=== PATIENT | female | born 1955 | race Hispanic/Latino ===

== ENCOUNTER 2017-07-24 09:08 | Inpatient (IN) | payer SELFPAY ==
[~2017-07-24] VITALS: Ht 165.1 cm; Wt 114.1 kg
[2017-07-24] MEDS ORDERED: ASPIRIN 81 MG CHEW TAB PO STA (09:23)
[2017-07-24 09:34] LABS: BASOPHILS % 0.2 % (0.0-1.0); EOSINOPHILS # (AUTO) 0.3 (0.0-0.4); EOSINOPHILS % 2.6 % (0.0-6.0); LYMPHOCYTES # (AUTO) 0.6 (1.0-3.2); MEAN CORPUSCULAR HEMOGLOBIN 28.9 pg (28-32); MEAN CORPUSCULAR HGB CONC 31.3 g/dL (31-35); MEAN CORPUSCULAR VOLUME 92.5 fL (81-99); MONOCYTES # (AUTO) 0.7 (0.2-0.8); MONOCYTES % 5.6 % (4.4-11.3); NEUTROPHILS # (AUTO) 10.5 (2.1-6.9); NEUTROPHILS % 86.4 % (38.7-80.0); PLATELET COUNT 311 x10e3/uL (140-360); RED BLOOD COUNT 5.19 x10e6/uL (3.6-5.1)
[2017-07-24 09:51] LABS: ALANINE AMINOTRANSFERASE 17 IU/L (0-55); ALBUMIN 3.2 g/dL (3.5-5.0); ALBUMIN/GLOBULIN RATIO 0.8 (0.8-2.0); ALKALINE PHOSPHATASE 74 IU/L (40-150); ANION GAP 12.4 mmol/L (8-16); BLOOD UREA NITROGEN 25 mg/dL (7-26); BUN/CREATININE RATIO 26 (6-25); CALCIUM 9.1 mg/dL (8.4-10.2); CARBON DIOXIDE 33 mmol/L (22-29); CHLORIDE 97 mmol/L (98-107); CREATINE KINASE 60 IU/L (29-168); CREATININE, SERUM 0.96 mg/dL (0.57-1.11); EST GLOMERULAR FILTRATION RATE 59 ML/MIN (60-); GLUCOSE 211 mg/dL (74-118); POTASSIUM 4.4 mmol/L (3.5-5.1); SODIUM 138 mmol/L (136-145)
[2017-07-24] MEDS ORDERED: ONDANSETRON HCL 4 MG ORAL DISINTEGRATING TAB PO ONE (10:15)
[2017-07-24] MEDS ORDERED: METHYLPREDNISOLONE SOD SUCC 125 MG/2ML VIAL IV ONE (10:30)
[2017-07-24] MEDS ORDERED: ALBUTEROL/IPRATROPIUM 3 ML NEB NEB ONE (10:30)
--- NOTE | 2017-07-24 10:31 | Diagnostic Imaging Report ---
PROCEDURE: CHEST SINGLE (PORTABLE) COMPARISON: None. INDICATIONS: SHORTNESS OF BREATH, CHEST PRESSURE FINDINGS: Suboptimal inspiratory effort with low lung volumes. Vascular crowding lung bases and perihilar regions. No focal airspace consolidation, large pleural effusion, or pneumothorax. Normal heart size for technique. Tortuosity and atherosclerotic calcification of the thoracic aorta. CONCLUSION: Low lung volumes with vascular crowding or pulmonary venous congestion in the perihilar regions. Dictated by: Kodi Pichardo M.D. on 07/24/2017 at 10:34 Electronically approved by: Kodi Pichardo M.D. on 07/24/2017 at 10:34
[2017-07-24] MEDS ORDERED: SODIUM CHLORIDE FLUSH 10 ML SYR INJ PRN (11:00)
[2017-07-24] MEDS ORDERED: NITROGLYCERIN 0.4 MG SUBL SL PRN (11:00)
[2017-07-24] MEDS ORDERED: ONDANSETRON HCL INJ 2 MG/ML VIAL IV PRN (11:00)
[2017-07-24] MEDS ORDERED: ASPIRIN 81 MG CHEW TAB PO ONE (11:00)
[2017-07-24] MEDS ORDERED: ONDANSETRON HCL 4 MG ORAL DISINTEGRATING TAB SL PRN (11:15)
[2017-07-24] MEDS ORDERED: LOSARTAN POTAS100 MG PO (12:00)
[2017-07-24] MEDS ORDERED: FENOFIBRATE145 MG PO (12:00)
[2017-07-24] MEDS ORDERED: BUPROPION HCL75 MG PO (12:00)
[2017-07-24] MEDS ORDERED: NIFEDIPINE ER30 M1 PO (12:00)
[2017-07-24] MEDS ORDERED: PANTOPRAZOLE SO40 MG PO (12:00)
[2017-07-24] MEDS ORDERED: GLIMEPIRIDE2 MG PO (12:00)
[2017-07-24] MEDS ORDERED: GABAPENTIN300 MG PO (12:00)
[2017-07-24] MEDS ORDERED: ASPIR 8181 MG PO (12:00)
[2017-07-24 12:49] LABS: CHOL/HDL RATIO 4.9 (3.0-3.6)
--- NOTE | 2017-07-24 12:49 | History and Physical ---
PRIMARY CARE PHYSICIAN: Kvng Alston MD CHIEF COMPLAINT: Chest discomfort and shortness of breath. HISTORY OF PRESENT ILLNESS: This is a 62-year-old woman with a history of DICTATION STOPPED AT THIS POINT. "PLEASE DISREGARD THIS REPORT." Job#: [id number]
--- OUTSIDE RECORDS SUMMARY | 2017-07-24 12:57 | XMS REPORT ---
Author Author [facility] Address Unknown Phone Unavailable Care Team Providers Care Preprint Analyst Name Role Phone VISH PINTO Unavailable Unavailable Problems This patient has no known problems. Allergies, Adverse Reactions, Alerts This patient has no known allergies or adverse reactions. Medications This patient has no known medications. Results Test Description Test Time Test Comments Text Results Atomic Results Result Comments CHEST SINGLE (PORTABLE) [place] [address] Patient Name: SAADIA WAGNER MR #: [id number] : 1955 Age/Sex: 62/F Req #: [id number] Adm Physician: Ordered by: VISH PINTO MD Report #: [id number] Location: ER Room/Bed: Procedure: [id number] DX/CHEST SINGLE (PORTABLE) Exam Date: 07/24/17 Exam Time: 1005 REPORT STATUS: Signed PROCEDURE: CHEST SINGLE (PORTABLE) COMPARISON: None. INDICATIONS: SHORTNESS OF BREATH, CHEST PRESSURE FINDINGS: Suboptimal inspiratory effort with low lung volumes. Vascular crowding lung bases and perihilar regions. No focal airspace consolidation, large pleural effusion, or pneumothorax. Normal heart size for technique. Tortuosity and atherosclerotic calcification of the thoracic aorta. CONCLUSION: Low lung volumes with vascular crowding or pulmonary venous congestion in the perihilar regions. Dictated by: Joss Lorenzo M.D. on 07/24/2017 at 10:34 Electronically approved by: Joss Lorenzo M.D. on 07/24/2017 at 10:34 Dictated By : JOSS OLRENZO MD 1034 Transcribed By: RENZO on 07/24/17 1034 COPY TO: VISH PINTO MD
[2017-07-24 13:08] LABS: THYROID STIMULATING HORMONE 2.938 uIU/mL (0.350-4.940)
[2017-07-24 13:57] VITALS: BP 121/70
[2017-07-24] MEDS: BUPROPION HCL 75 MG TAB PO SCH (14:16)
[2017-07-24] MEDS: GABAPENTIN 300 MG CAP PO SCH ×2 (14:16→21:01)
[2017-07-24 14:17] VITALS: BP 121/70
[2017-07-24 14:24] VITALS: BP 121/70
[2017-07-24 15:44] VITALS: BP 125/69
[2017-07-24 17:52] LABS: CREATINE KINASE 53 IU/L (29-168)
--- NOTE | 2017-07-24 18:37 | History and Physical ---
PRIMARY CARE PHYSICIAN: Dr. Kvng Alston. CHIEF COMPLAINT: Chest discomfort and shortness of breath. HISTORY OF PRESENT ILLNESS: A 62-year-old woman with history of venous thromboembolism and pleural effusion, now developing chest discomfort and shortness of breath. Chest discomfort in the left mid chest described as mild. No dizziness or blurred vision. No headache. She is admitted for further evaluation and management. PAST MEDICAL HISTORY: Hypertension, hyperlipidemia, venous thromboembolism, leg cellulitis, pleural effusion, acute respiratory failure, depression, diabetes mellitus type 2, right leg cellulitis, chronic diastolic congestive heart failure, VRE bacteremia, hyperammonemia, acute kidney injury, vitamin B deficiency and vitamin D deficiency, pneumonia, eczematous changes of the hands, palms, neck and peripheral edema and diabetic neuropathy. PAST SURGICAL HISTORY: and hysterectomy. ALLERGIES: PER ELECTRONIC MEDICAL RECORDS. FAMILY HISTORY: Mother had diabetes mellitus type 2, hypertension and stroke. She is . Father had diabetes mellitus type 2 and he is . SOCIAL HISTORY: The patient denies any alcohol, illicits or cigarettes. MEDICATIONS: Per electronic medical records. REVIEW OF SYSTEMS: Denies any dizziness, fever, chills or sweats. PHYSICAL EXAMINATION VITAL SIGNS: Reviewed. GENERAL APPEARANCE: A tired-appearing woman resting in the bed. HEENT: Anicteric. Pupils responsive to light. No oral lesions. CARDIOVASCULAR: Normal S1 and S2. LUNGS: Reduced respiratory effort. No wheezing. ABDOMEN: Soft and nontender. Nondistended. EXTREMITIES: Trace edema. MUSCULOSKELETAL: No chest wall tenderness. SKIN: Dry. PSYCHIATRIC: Flat affect. LABS: Reviewed. MEDICATIONS: Reviewed. ASSESSMENT AND PLAN: A 62-year-old woman. 1. Chest discomfort. Obtain cardiac enzymes and rule out acute coronary syndrome. 2. Chronic congestive heart failure. She has mild peripheral edema, could be mild exacerbation. Will obtain a BNP. 3. Diabetes mellitus type 2. Obtain hemoglobin A1c and lipid panel. 4. Hypertension. Continue home medications. 5. Hyperlipidemia. Obtain lipid panel. 6. History of venous thromboembolism. 7. Mild leukocytosis. Will obtain a urinalysis. 8. Pulmonary venous congestion. May need to be diuresed. 9. Physical deconditioning. Physical therapy consultation. 10. Diabetic neuropathy. Continue gabapentin. 11. Prophylaxis: Will use heparin 5000 q.12 h. and proton pump inhibitor. DISPOSITION: Follow up labs. Follow up cardiac enzymes. Job#: [id number] GH
[2017-07-24 19:10] VITALS: BP 101/67
[2017-07-24 21:00] VITALS: BP 101/67
[2017-07-24] MEDS: HEPARIN SOD (PORCINE) 5,000 UNIT/ML VIAL SC SCH (21:01)
[2017-07-25] VITALS (9 sets, daily range): BP systolic 123–142; BP diastolic 67–81
[2017-07-25] MEDS: BUPROPION HCL 75 MG TAB PO SCH ×2 (00:30→12:30)
[2017-07-25 03:57] LABS: CREATINE KINASE 44 IU/L (29-168)
[2017-07-25] MEDS ORDERED: PRAVASTATIN SOD20 MG PO (06:23)
[2017-07-25 06:58] LABS: CHOL/HDL RATIO 4.9 (3.0-3.6)
--- NOTE | 2017-07-25 08:09 | Discharge Summary ---
PRINCIPAL DIAGNOSES 1. Atypical chest pain with negative cardiac enzymes. 2. Chronic congestive heart failure, euvolemic. 3. Diabetes mellitus, type 2. Glycosylated hemoglobin is 6.6, low-density lipoprotein 170 and triglycerides 178. 4. Hyperlipidemia. 5. Hypertension. 6. Mild leukocytosis. 7. Pulmonary venous congestion. 8. Diabetic neuropathy. SECONDARY DIAGNOSIS: Diabetes mellitus, type 2. CHIEF COMPLAINT: Chest discomfort. HISTORY OF PRESENT ILLNESS: This is a 62-year-old woman with chest discomfort. Please refer to the H and P for further details. HOSPITAL COURSE: The patient was found to have chest discomfort. Cardiac enzymes were negative times 3. BNP was normal. She has congestive heart failure. She is euvolemic at this time. BNP resolved. She had diabetes mellitus, type 2. Hemoglobin A1c was 6.6. LDL and triglycerides as described above. The patient is doing better. She can be discharged home and follow up with primary care doctor in 1 week. Follow up with cardiology in 2 weeks. CONDITION ON DISCHARGE: Stable and improving. DISCHARGE LOCATION: Home. CYNTHIA BELLO MD Job#: [id number]
[2017-07-25] MEDS ORDERED: ASPIRIN 81 MG ENTERIC COATED PO SCH (09:00)
[2017-07-25] MEDS: FENOFIBRATE 145 MG TAB PO SCH (09:00)
[2017-07-25] MEDS: ASPIRIN 81 MG CHEW TAB PO SCH (09:00)
[2017-07-25] MEDS: LOSARTAN POTASSIUM 100 MG TAB PO SCH (09:00)
[2017-07-25] MEDS: NIFEDIPINE CR 30 MG TAB PO SCH (09:00)
[2017-07-25] MEDS: GABAPENTIN 300 MG CAP PO SCH ×3 (09:00→21:00)
[2017-07-25] MEDS: PANTOPRAZOLE SOD 40 MG TABEC PO SCH (09:00)
[2017-07-25] MEDS: HEPARIN SOD (PORCINE) 5,000 UNIT/ML VIAL SC SCH ×2 (09:00→22:23)
[2017-07-25] MEDS ORDERED: FUROSEMIDE INJ 10 MG/ML 2 ML VIAL IV ONE (13:45)
[2017-07-25 20:55] LABS: CLARITY,URINE CLEAR (CLEAR); COLOR,URINE YELLOW (YELLOW); LEUKOCYTE ESTERASE ,URINE NEGATIVE (NEGATIVE); NITRITE,URINE NEGATIVE (NEGATIVE); PROTEIN,URINE DIPSTICK NEGATIVE (NEGATIVE)
[2017-07-25 20:56] LABS: BILIRUBIN,URINE NEGATIVE (NEGATIVE); KETONES,URINE NEGATIVE (NEGATIVE); URINE UROBILINOGEN 0.2 mg/dL (0.2 - 1)
[2017-07-25 21:03] LABS: EPITHELIAL CELLS,URINE MANY /LPF; RBC,URINE 0-5 /HPF (0-5); WBC,URINE (MAN) 0-5 /HPF (0-5)
[2017-07-26] VITALS (8 sets, daily range): BP systolic 96–140; BP diastolic 42–80
[2017-07-26] MEDS: BUPROPION HCL 75 MG TAB PO SCH (00:30)
[2017-07-26] MEDS: ASPIRIN 81 MG CHEW TAB PO SCH (08:02)
[2017-07-26] MEDS: GABAPENTIN 300 MG CAP PO SCH (08:02)
[2017-07-26] MEDS: LOSARTAN POTASSIUM 100 MG TAB PO SCH (08:02)
[2017-07-26] MEDS: NIFEDIPINE CR 30 MG TAB PO SCH (08:03)
[2017-07-26] MEDS: FENOFIBRATE 145 MG TAB PO SCH (08:03)
[2017-07-26] MEDS ORDERED: VENLAFAXINE HCL 37.5MG XR CAP PO SCH (09:00)
[2017-07-26] MEDS: HEPARIN SOD (PORCINE) 5,000 UNIT/ML VIAL SC SCH ×2 (09:00→21:34)
[2017-07-26] MEDS: PANTOPRAZOLE SOD 40 MG TABEC PO SCH (12:37)
[2017-07-26] MEDS ORDERED: TRAZODONE HCL 50 MG TAB PO PRN (16:15)
--- NOTE | 2017-07-26 16:59 | Consultation ---
DATE OF CONSULTATION: July 26, 2017 REASON FOR CONSULTATION: To evaluate the patient's mood and psychosis. HISTORY OF PRESENTING ILLNESS: The patient is a 62-year-old female admitted to the hospital for chest pain. Psychiatric consultation is called to evaluate the patient's mood. As per the medical record, the patient came in complaining of chest discomfort and shortness of breath. She has history of hypertension, hyperlipidemia, venous thromboembolism, leg cellulitis, pleural effusion, acute respiratory failure, depression, diabetes, cellulitis, congestive heart failure, hyperammonemia, acute kidney injury, vitamin B deficiency, vitamin D deficiency, pneumonia. As per nursing note, the patient has been speaking to family members, the patient's son who reports that the patient has been depressed since she has been laid off from [employer]. She has not been taking her medications as prescribed. She appears to be sleepy and lethargic while she is in the hospital. She also has family issues. Upon evaluation today, the patient is found to be lying on the bed. She is alert, awake and oriented to self, place and time. She does not know the reason for hospitalization. She is answering questions, but slow to respond. She reports feeling depressed and anxious, but unable to state the reason why. She just stares at the speaker. The patient states she is feeling hopeless and helpless. She denies any hallucinations. She denies any suicidal ideation. She denies any problem with sleep or appetite. The patient appears to be lethargic. She is not combative. she also appears somewhat anxious, afraid. PAST PSYCHIATRIC HISTORY: She denies past psychiatric history, although she is taking Wellbutrin at home. She denies past suicide attempt. She denies alcohol and drug use. FAMILY HISTORY: The patient states that her mom and dad have some medical issues, but unable to state diagnosis. SOCIAL HISTORY: The patient states that she lives with her son and daughter. MENTAL STATUS EXAM: The patient is an elderly female. She is alert, awake and oriented to self, place and time. Her mood depressed, anxious. She denies any suicidal or homicidal ideation. She denies any hallucinations. Thought process is slow. No delusions elicited. Insight and judgment are limited. CURRENT MEDICATIONS: Effexor XR 37.5 mg p.o. q.12 h. Pantoprazole. Nifedipine. Fenofibrate. Losartan. Aspirin. Heparin. Wellbutrin 150 mg p.o. q.12 h. Sodium chloride. Nitrostat. LABORATORY DATA: WBC 12.19, RBCs 5.1. Hemoglobin 15, hematocrit 48. Platelets 311,000. Sodium 138. Potassium 4.4. Chloride 97. CO2 of 33. BUN 25. Creatinine 0.96. AST 16, ALT 17. ASSESSMENT: Major depressive disorder, recurrent, moderate. PLAN: 1. Discontinue Wellbutrin as the patient has been refusing medications. 2. Add trazodone 50 mg p.o. nightly p.r.n. for insomnia. 3. Discontinue Effexor. 4. Add Effexor XR 75 mg p.o. daily. 5. Monitor mood. 6. Supportive therapy. 7. Recommend followup with outpatient psychiatry. Thank you for this consultation. Dictated by: TALIA Mcmillan Job#: [id number] GH
[2017-07-26] MEDS ORDERED: BUPROPION HCL 75 MG TAB PO SCH (17:00)
[2017-07-27 00:20] VITALS: BP 98/55
[2017-07-27 04:00] VITALS: BP 129/59
[2017-07-27 07:20] VITALS: BP 129/59
[2017-07-27 08:00] VITALS: BP 107/64
[2017-07-27] MEDS: ASPIRIN 81 MG CHEW TAB PO SCH (08:31)
[2017-07-27] MEDS: LOSARTAN POTASSIUM 100 MG TAB PO SCH (08:31)
[2017-07-27] MEDS: PANTOPRAZOLE SOD 40 MG TABEC PO SCH (08:32)
[2017-07-27] MEDS: FENOFIBRATE 145 MG TAB PO SCH (08:32)
[2017-07-27] MEDS: NIFEDIPINE CR 30 MG TAB PO SCH (08:32)
[2017-07-27] MEDS: HEPARIN SOD (PORCINE) 5,000 UNIT/ML VIAL SC SCH (08:44)
[2017-07-27] MEDS ORDERED: VENLAFAXINE HCL 37.5MG XR CAP PO SCH ×2 (09:00)
[2017-07-27] MEDS ORDERED: EFFEXOR XR 3737.5 MG PO (10:09)
== END 2017-07-27 12:48 | disposition home or self-care (01) | DRG 313 ==
LOC: ER 09:18 → ERHOLD 12:54 → IMCU 13:07 → OBSVTOIN 07-26 12:01
PROVIDERS: ADMIT Internal Medicine; ATTEND Internal Medicine
DX: R07.89 Other chest pain (principal); I50.32 Chronic diastolic (congestive) heart failure; R10.9 Unspecified abdominal pain; I11.0 Hypertensive heart disease with heart failure; Z79.4 Long term (current) use of insulin; Z86.718 Personal history of other venous thrombosis and embolism; Z79.01 Long term (current) use of anticoagulants; E11.40 Type 2 diabetes mellitus with diabetic neuropathy, unspecified; D72.829 Elevated white blood cell count, unspecified
CPT/HCPCS: 36415; 71045; 80053; 80061; 81001; 82550; 82553; 82948; 83036; 83880; 84443; 84484; 85025; 85379; 93005; 94640; 99284; G0378; J1644; J1940; J2930